=== PATIENT | female | born 1960 ===

== ENCOUNTER 2021-12-26 06:00 | Day surgery (SDC) | payer OTHER ==
[~2021-12-26 06:00] MED LIST: SINGULAIR10 MG PO
== END 2021-12-26 21:20 | disposition home or self-care (01) ==
LOC: CIR.AMB 06:00
PROVIDERS: ATTEND Specialist
DX: N84.0 Polyp of corpus uteri (principal); Z90.13 Acquired absence of bilateral breasts and nipples; I34.1 Nonrheumatic mitral (valve) prolapse; J45.909 Unspecified asthma, uncomplicated; G43.909 Migraine, unspecified, not intractable, without status migrainosus; M50.30 Other cervical disc degeneration, unspecified cervical region; Z20.822 Contact with and (suspected) exposure to COVID-19